=== PATIENT | female | born 1970 | race Two or more races ===

== ENCOUNTER 2021-12-24 12:19 | Inpatient (IN) | payer OTHER ==
[2021-12-24 14:26] VITALS: BMI 31.3
[2021-12-24] MEDS ORDERED: MAGNESIUM HYDROX 2400MG/30ML ORAL SUSPENSION 30 ML CUP PO PRN (16:25)
[2021-12-24] MEDS ORDERED: BENZOCAINE/MENTHOL (CHLORASEPTIC ) LOZENGE MM PRN (16:25)
[2021-12-24] MEDS ORDERED: IBUPROFEN 400 MG TABLET (FP) PO PRN (16:25)
[2021-12-24] MEDS ORDERED: ONDANSETRON *ODT* 4 MG TABLET SL PRN (16:25)
[2021-12-24] MEDS ORDERED: MAGNESIUM CITRATE 300 ML BOTTLE PO PRN (16:25)
[2021-12-24] MEDS ORDERED: cloNIDine HCL 0.1 MG TABLET PO PRN (16:25)
[2021-12-24] MEDS ORDERED: NALOXONE HCL (KLOXXADO) 8 MG SPRAY NS PRN (16:25)
[2021-12-24] MEDS ORDERED: MAG HYDROX/AL HYDROX/SIMETH 30 ML UNIT-DOSE CUP PO PRN (16:25)
[2021-12-24] MEDS ORDERED: BISMUTH SUBSALICYLATE 524 MG/30 ML PO PRN (16:25)
[2021-12-24] MEDS ORDERED: LOPERAMIDE HCL 2 MG CAPSULE PO PRN (16:25)
[2021-12-24] MEDS ORDERED: methaDONE HCL 10 MG TABLET (FOR DETOX USE ONLY) PO ONE (16:25)
[2021-12-24] MEDS ORDERED: DICYCLOMINE HCL 10 MG CAPSULE PO PRN (16:25)
[2021-12-24] MEDS ORDERED: ACETAMINOPHEN 325 MG TABLET (FP) PO PRN ×2 (16:25)
[2021-12-24] MEDS: NICOTINE 21 MG/24 HOURS TOPICAL PATCH TD SCH (19:10)
[2021-12-24] MEDS: hydrOXYzine PAMOATE 25 MG CAPSULE (FP) PO SCH ×2 (19:13→22:41)
[2021-12-24] MEDS: MELATONIN 5 MG TABLETS PO SCH (22:41)
[2021-12-24] MEDS: diazePAM 5 MG TABLET PO SCH (22:41)
[2021-12-24] MEDS: THIAMINE HCL 100 MG TABLET (FP) PO SCH (22:41)
[2021-12-25] MEDS: hydrOXYzine PAMOATE 25 MG CAPSULE (FP) PO SCH ×5 (05:20→23:01)
[2021-12-25] MEDS: diazePAM 5 MG TABLET PO SCH ×4 (05:20→22:59)
[2021-12-25] MEDS: METHOCARBAMOL 500 MG TABLET PO PRN (05:21)
[2021-12-25] MEDS: NICOTINE 10 MG CARTRIDGE (INHALER) IH PRN (12:01)
[2021-12-25] MEDS: NICOTINE 21 MG/24 HOURS TOPICAL PATCH TD SCH (12:01)
[2021-12-25] MEDS: PRENATAL VITAMINS W/ FOLIC ACID TABLET (FP) PO SCH (12:01)
[2021-12-25] MEDS ORDERED: ALBUTEROL SO4 0.083% IH SOL 2.5 MG/3 ML VIAL.NEB. NEB PRN (12:19)
[2021-12-25] MEDS ORDERED: QUEtiapine FUMARATE 100 MG TABLET (FP) PO SCH (22:00)
[2021-12-25] MEDS: THIAMINE HCL 100 MG TABLET (FP) PO SCH (23:00)
[2021-12-25] MEDS: QUEtiapine FUMARATE 100 MG TABLET (FP) PO SCH (23:00)
[2021-12-25] MEDS: MELATONIN 5 MG TABLETS PO SCH (23:03)
[2021-12-26] MEDS: diazePAM 5 MG TABLET PO SCH ×3 (05:54→22:35)
[2021-12-26] MEDS: hydrOXYzine PAMOATE 25 MG CAPSULE (FP) PO SCH ×5 (05:55→22:35)
[2021-12-26] MEDS ORDERED: methaDONE HCL 10 MG TABLET PO SCH (07:45)
[2021-12-26] MEDS ORDERED: methaDONE HCL 10 MG TABLET (FOR DETOX USE ONLY) PO ONE (10:00)
[2021-12-26] MEDS: PRENATAL VITAMINS W/ FOLIC ACID TABLET (FP) PO SCH (10:27)
[2021-12-26] MEDS: ESCITALOPRAM OXALATE 10 MG TABLET PO SCH (10:27)
[2021-12-26] MEDS: NICOTINE 21 MG/24 HOURS TOPICAL PATCH TD SCH (10:30)
[2021-12-26 12:06] LABS: CALCIUM 8.9 mg/dL (8.5-10.1)
[2021-12-26 12:10] LABS: CREATININE 0.7 mg/dL (0.55-1.3)
[2021-12-26 12:11] LABS: TOT PROT 6.3 g/dl (6.4-8.2)
[2021-12-26 12:12] LABS: BILIRUBIN,TOTAL 0.2 mg/dL (0.2-1)
[2021-12-26 12:17] LABS: HEMATOCRIT 35.8 % (32.4-45.2); HEMOGLOBIN 12.3 GM/dL (10.7-15.3); MCH 33.2 pg (25.7-33.7); MCHC 34.3 g/dl (32.0-36.0); MEAN CELL VOLUME 96.8 fl (80-96); MEAN PLT VOLUME 8.8 fl (7.5-11.1); PLATELET COUNT 189 10^3/uL (134-434); RDW 14.3 % (11.6-15.6); WHITE BLOOD COUNT 8.5 K/mm3 (4.0-10.0)
[2021-12-26] MEDS: BACITRACIN 15 GM TUBE TOPICAL OINTMENT TP SCH (13:50)
[2021-12-26] MEDS: ALBUTEROL SO4 HFA INHALER IH PRN (15:32)
[2021-12-26] MEDS ORDERED: CLINDAMYCIN HCL 300 MG CAPSULE PO ONE (15:58)
[2021-12-26] MEDS: diazePAM 5 MG TABLET PO PRN (17:11)
[2021-12-26] MEDS: METHOCARBAMOL 500 MG TABLET PO PRN (17:12)
[2021-12-26] MEDS ORDERED: CLINDAMYCIN HCL 150 MG CAPSULE (FP) PO ONE (17:15)
[2021-12-26] MEDS: IBUPROFEN 600 MG TABLET (FP) PO PRN (17:16)
[2021-12-26] MEDS ORDERED: CLINDAMYCIN HCL 300 MG CAPSULE PO SCH ×2 (22:00)
[2021-12-26] MEDS: MELATONIN 5 MG TABLETS PO SCH (22:34)
[2021-12-26] MEDS: THIAMINE HCL 100 MG TABLET (FP) PO SCH (22:35)
[2021-12-26] MEDS: CLINDAMYCIN HCL 150 MG CAPSULE (FP) PO SCH (22:35)
[2021-12-26] MEDS: QUEtiapine FUMARATE 100 MG TABLET (FP) PO SCH (22:35)
[2021-12-27] MEDS: hydrOXYzine PAMOATE 25 MG CAPSULE (FP) PO SCH ×5 (05:26→22:11)
[2021-12-27] MEDS: CLINDAMYCIN HCL 150 MG CAPSULE (FP) PO SCH ×3 (05:27→22:11)
[2021-12-27] MEDS: diazePAM 5 MG TABLET PO SCH ×2 (05:27→17:54)
[2021-12-27] MEDS: PRENATAL VITAMINS W/ FOLIC ACID TABLET (FP) PO SCH (09:50)
[2021-12-27] MEDS: diazePAM 5 MG TABLET PO PRN (09:51)
[2021-12-27] MEDS: ESCITALOPRAM OXALATE 10 MG TABLET PO SCH (09:51)
[2021-12-27] MEDS: METHOCARBAMOL 500 MG TABLET PO PRN ×2 (09:51→17:55)
[2021-12-27] MEDS: IBUPROFEN 600 MG TABLET (FP) PO PRN (09:51)
[2021-12-27] MEDS: BACITRACIN 15 GM TUBE TOPICAL OINTMENT TP SCH (09:52)
[2021-12-27] MEDS: NICOTINE 21 MG/24 HOURS TOPICAL PATCH TD SCH (09:53)
[2021-12-27] MEDS ORDERED: COLLOIDAL OATMEAL 1 BAR EACH TP PRN (13:23)
[2021-12-27] MEDS: THIAMINE HCL 100 MG TABLET (FP) PO SCH (22:11)
[2021-12-27] MEDS: MELATONIN 5 MG TABLETS PO SCH (22:11)
[2021-12-27] MEDS: QUEtiapine FUMARATE 100 MG TABLET (FP) PO SCH (22:11)
[2021-12-28] MEDS: CLINDAMYCIN HCL 150 MG CAPSULE (FP) PO SCH ×3 (05:13→22:10)
[2021-12-28] MEDS: hydrOXYzine PAMOATE 25 MG CAPSULE (FP) PO SCH ×5 (05:14→23:08)
[2021-12-28] MEDS ORDERED: diazePAM 5 MG TABLET PO ONE (06:00)
[2021-12-28] MEDS ORDERED: methaDONE HCL 10 MG TABLET (FOR DETOX USE ONLY) PO ONE (10:00)
[2021-12-28] MEDS: BACITRACIN 15 GM TUBE TOPICAL OINTMENT TP SCH (10:09)
[2021-12-28] MEDS: NICOTINE 21 MG/24 HOURS TOPICAL PATCH TD SCH (10:10)
[2021-12-28] MEDS: ESCITALOPRAM OXALATE 10 MG TABLET PO SCH (10:10)
[2021-12-28] MEDS: PRENATAL VITAMINS W/ FOLIC ACID TABLET (FP) PO SCH (10:10)
[2021-12-28] MEDS: ALBUTEROL SO4 HFA INHALER IH PRN (16:57)
[2021-12-28 17:35] VITALS: RESP 17
[2021-12-28] MEDS: QUEtiapine FUMARATE 100 MG TABLET (FP) PO SCH (22:09)
[2021-12-28] MEDS: THIAMINE HCL 100 MG TABLET (FP) PO SCH (22:10)
[2021-12-28] MEDS: METHOCARBAMOL 500 MG TABLET PO PRN (22:11)
[2021-12-28] MEDS: NICOTINE 10 MG CARTRIDGE (INHALER) IH PRN (22:22)
[2021-12-28] MEDS: MELATONIN 5 MG TABLETS PO SCH (23:08)
[2021-12-29] MEDS: CLINDAMYCIN HCL 150 MG CAPSULE (FP) PO SCH (06:08)
[2021-12-29] MEDS: hydrOXYzine PAMOATE 25 MG CAPSULE (FP) PO SCH ×2 (06:08→10:28)
[2021-12-29] MEDS: PRENATAL VITAMINS W/ FOLIC ACID TABLET (FP) PO SCH (10:28)
[2021-12-29] MEDS: ESCITALOPRAM OXALATE 10 MG TABLET PO SCH (10:28)
[2021-12-29] MEDS: BACITRACIN 15 GM TUBE TOPICAL OINTMENT TP SCH (10:29)
[2021-12-29] MEDS: NICOTINE 21 MG/24 HOURS TOPICAL PATCH TD SCH (10:29)
[2021-12-29 12:47] VITALS: BP 124/81; PULSE 86; TEMP 97.5
== END 2021-12-29 14:07 | disposition home or self-care (01) | DRG 773 ==
LOC: YASAS 12:19 → Y6N 15:29
PROVIDERS: ADMIT Allergy & Immunology; ATTEND Surgery
PROC: HZ2ZZZZ Detoxification Services for Substance Abuse Treatment (ICD-10-PCS; principal; 2021-12-24)
DX: F10.230 Alcohol dependence with withdrawal, uncomplicated (principal); F11.23 Opioid dependence with withdrawal; F13.230 Sedative, hypnotic or anxiolytic dependence with withdrawal, uncomplicated; F17.210 Nicotine dependence, cigarettes, uncomplicated; F19.282 Other psychoactive substance dependence with psychoactive substance-induced sleep disorder; F19.24 Other psychoactive substance dependence with psychoactive substance-induced mood disorder; F25.9 Schizoaffective disorder, unspecified; J45.20 Mild intermittent asthma, uncomplicated; M79.89 Other specified soft tissue disorders; Z28.310 Unvaccinated for COVID-19; Z28.9 Immunization not carried out for unspecified reason; Z88.0 Allergy status to penicillin
CPT/HCPCS: 36415; 73630-TC-RT-FY; 80053; 81025; 82962; 85027; 86780; 87811; 93005; 93010; C9803-CS; U0003; U0005